=== PATIENT | male | born 1950 | race Caucasian/White ===

== ENCOUNTER 2022-04-02 15:11 | Emergency (ER) | payer OTHER ==
[~2022-04-02] VITALS: Ht 185.4 cm; Wt 95.3 kg
[2022-04-02 15:21] VITALS: BP_SYST 155
--- NOTE | 2022-04-02 15:28 | NUR ---
Triaged pt and placed in waiting room until bed becomes available. Pt c/o being referred to come to the ER by his doctor at urgent care. Pt c/o bilateral lower leg numbness. Pt wants to rule out any blood clots. NKA. Has hx of DM, HTN, Arthiritis. Ambulatory with unsteady gait using a cane. Accompanied by son. No chest pain and no sob. Denies n/v. Has had right cataract surgery.
--- NOTE | 2022-04-02 20:28 | NUR ---
Patient to [facility] for evaluation. Side rails up.
--- NOTE | 2022-04-02 20:30 | NUR ---
PATIENT BROUGHT IN COMPLAINING OF LEFT LEG PAIN WITH WEAKNESS X 3 DAYS. PATIENT REPORTS THAT HE HAS FALLEN A FEW TIMES BUT DENIES ANY LOC. PATIENT ABLE TO AMBULATE TO BEDSIDE. PATIENT ACCOMPANIED BY FAMILY MEMBER. DENIES ANY OTHER COMPLAINTS/INJURIES PER PATIENT OR NOTED.
--- NOTE | 2022-04-02 20:49 | NUR ---
DR. MCDONALD AT BEDSIDE EXAMINING PATIENT
--- NOTE | 2022-04-02 22:27 | NUR ---
Note micalix in EDM - 04/02/22 at 2233 by [email or web address] PATIENT BROUGHT IN COMPLAINING OF LEFT LEG PAIN WITH WEAKNESS X 3 DAYS. PATIENT REPORTS THAT HE HAS FALLEN A FEW TIMES BUT DENIES ANY LOC. PATIENT ABLE TO AMBULATE TO BEDSIDE. PATIENT ACCOMPANIED BY FAMILY MEMBER. DENIES ANY OTHER COMPLAINTS/INJURIES PER PATIENT OR NOTED.
== END 2022-04-02 23:40 | disposition left against medical advice (07) ==
LOC: SED 15:11
DX: R20.2 Paresthesia of skin (principal); M79.662 Pain in left lower leg; E11.9 Type 2 diabetes mellitus without complications; I10 Essential (primary) hypertension; Z79.899 Other long term (current) drug therapy
CPT/HCPCS: 93970; 99284